=== PATIENT | female | born 1995 | race Caucasian/White ===

== ENCOUNTER 2019-10-29 12:48 | Emergency (ER) | payer OTHER ==
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
[2019-10-29 15:05] VITALS: BP 135/89
== END 2019-10-29 15:09 | disposition home or self-care (01) ==
LOC: ED 12:48
DX: S00.11XA Contusion of right eyelid and periocular area, initial encounter (principal); H72.91 Unspecified perforation of tympanic membrane, right ear; Y04.2XXA Assault by strike against or bumped into by another person, initial encounter
CPT/HCPCS: 70450; 70486; 71045; 72125; 99284